=== PATIENT | male | born 1950 | race Caucasian/White ===

== ENCOUNTER → 2018-01-30 11:04 | Outpatient (CLI) | payer MEDICARE, SELFPAY ==
[2018-01-30 11:11] LABS: Bacteria 0 SEEN /hpf (None Seen); Mucous, Urine 0 SEEN /hpf (<or=2+); Red Blood Cells-Urine 0 SEEN /hpf (0-5); Squamous Epithelial Cells - UA 0 SEEN /hpf (0-5)
[2018-01-30 12:18] LABS: Color, Urine Yellow (Yellow); Glucose, Dipstick Normal (Normal); Ketone-Dipstick Negative (Negative); Leukocyte Esterase-Dipstick 25 /ul (Negative); Nitrite-Dipstick Negative (Negative); Occult Blood-Urine Negative /ul (Negative); Protein-Dipstick Negative (Negative); Specific Gravity, Urine 1.015 (1.002-1.030); Urine Bilirubin Dipstick Negative (Negative); Urine Clarity Sl. Cloudy (Clear); Urine Urobilinogen Normal (Normal)
[2018-01-30 12:21] LABS: Absolute Lymphocyte Count 2.78 X10^3/ul (0.83-4.51); Absolute Neutrophil Count 6.6 X10^3/uL (2.0-7.7); Basophil# 0.03 X10^3/uL; Basophil% 0.3 % (0-1); Eosinophil# 0.13 X10^3/uL; Eosinophils% 1.3 % (0-5); Hematocrit 49.6 % (40-54); Hemoglobin 16.8 g/dl (13.0-16.5); Lymphocyte # 2.78 X10^3/ul (4.0); Lymphocyte % 27.1 % (19-41); Mean Corp Hgb Conc 33.9 g/gl (32-36); Mean Corpuscular Hgb 32.7 pg (27.0-32.0); Mean Corpuscular Volume 96.5 fL (80-94); Mean Platelet Vol. 11.3 fl (6.2-12.0); Monocyte# 0.67 X10^3/uL; Monocyte% 6.5 % (0-10); Neutrophil # 6.64 X10^3/uL (2.7-7.7); Neutrophil % 64.7 % (47-70); Platelet Count 180 K/mm3 (150-450); RBC Distribution Width CV 12.9 % (11.6-14.6); RBC Distribution Width SD 45.7 fl (35.1-43.9); Red Blood Count 5.14 M/mm3 (4.6-6.2); White Blood Count 10.3 K/mm3 (4.4-11.0)
[2018-01-30 12:26] LABS: White Blood Cells 0-5 SEEN /hpf (0-5)
[2018-01-30 12:27] LABS: POSITIVE COUNT NO; POSITIVE DIFFERENTIAL NO; POSITIVE MORPHOLOGY NO
[2018-01-30 12:56] LABS: AST(SGOT) 28 U/L (15-37); Alanine Aminotransfer ALT/SGPT 54 U/L (16-61); Albumin, Serum 3.6 g/dL (3.2-5.0); Alkaline Phosphatase 124 U/L (45-117); Anion Gap 6 (5-15); BUN 16 mg/dL (7-18); BUN/Creat Ratio 15.5 RATIO (10-20); Calcium,Total 8.5 mg/dL (8.5-10.1); Chloride 107 mmol/L (98-107); Cholesterol 132 mg/dL (200); Creatinine, Serum 1.03 mg/dL (0.70-1.30); EST Glomerular Filtration Rate 77 mL/min (>60); Est Glom Filt Rate - Afr Amer 93 mL/min (>60); Globulin 3.5 g/dL (2.2-4.2); Glucose 88 mg/dL (74-106); Protein, Total 7.1 g/dL (6.4-8.2); Sodium Level 139 mmol/L (136-145); Thyroid Stim Hormone (TSH) 1.36 uIU/mL (0.358-3.74)
[2018-01-31 11:35] LABS: LDL, Direct 120295 75 mg/dL (0-99)
== END ==
PROVIDERS: Family Provider Family Medicine; PCP Family Medicine; Visit Provider Family Medicine
DX: I25.10 Atherosclerotic heart disease of native coronary artery without angina pectoris (principal); J44.9 Chronic obstructive pulmonary disease, unspecified; N52.9 Male erectile dysfunction, unspecified; E78.00 Pure hypercholesterolemia, unspecified
CPT/HCPCS: 36415; 80053; 81001; 82465; 83721; 84443; 85025

== ENCOUNTER → 2018-07-03 10:13 | Outpatient (CLI) | payer MEDICARE, SELFPAY ==
[2018-07-03 12:16] LABS: ALB/GLOB Ratio 1.1 RATIO (0.9-2.4); AST(SGOT) 16 U/L (15-37); Alanine Aminotransfer ALT/SGPT 29 U/L (16-61); Albumin, Serum 3.7 g/dL (3.2-5.0); Alkaline Phosphatase 126 U/L (45-117); Anion Gap 7 (5-15); BUN 16 mg/dL (7-18); BUN/Creat Ratio 14.7 RATIO (10-20); Calcium,Total 8.8 mg/dL (8.5-10.1); Chloride 107 mmol/L (98-107); Cholesterol 130 mg/dL (200); Creatinine, Serum 1.09 mg/dL (0.70-1.30); EST Glomerular Filtration Rate 72 mL/min (>60); Est Glom Filt Rate - Afr Amer 87 mL/min (>60); Globulin 3.4 g/dL (2.2-4.2); Glucose 87 mg/dL (74-106); High Density Lipoprotein 30 mg/dL; Potassium 4.4 mmol/L (3.5-5.1); Protein, Total 7.1 g/dL (6.4-8.2); Sodium Level 140 mmol/L (136-145); Triglycerides 125 mg/dL; Very Low Density Lipoprotein 25 mg/dL (5-40)
== END ==
PROVIDERS: Family Provider Family Medicine; PCP Family Medicine; Referring Provider Family Medicine; Visit Provider Family Medicine
DX: I25.10 Atherosclerotic heart disease of native coronary artery without angina pectoris (principal)
CPT/HCPCS: 36415; 80053; 80061

== ENCOUNTER → 2018-07-04 09:19 | Outpatient (CLI) | payer MEDICARE, SELFPAY ==
--- NOTE | 2018-07-04 09:24 | RAD_ITS ---
STUDY: X-RAY - PARANASAL SINUSES REASON FOR EXAM: Male, 67 years old. Right-sided pain and pressure. Headache. TECHNIQUE: 3 view(s) of the paranasal sinuses were obtained. COMPARISON: None. FINDINGS: Normal visualized frontal, maxillary, ethmoidal and sphenoid sinuses. Normal visualized facial bones. The soft tissue structures are unremarkable. RAD/Sinuses min 3 Views IMPRESSION: Normal x-rays of the paranasal sinuses. Electronically Signed: Pj Yoder MD at 4:00 EST , Service support ,
[2018-07-04 10:26] LABS: Erythrocyte Sedimentation Rate 9 mm/hr (0-20)
[2018-07-04 10:42] LABS: Absolute Lymphocyte Count 2.88 X10^3/ul (0.83-4.51); Absolute Neutrophil Count 8.8 X10^3/uL (2.0-7.7); Basophil# 0.04 X10^3/uL; Basophil% 0.3 % (0-1); Eosinophil# 0.14 X10^3/uL; Eosinophils% 1.1 % (0-5); Hematocrit 50.3 % (40-54); Hemoglobin 16.8 g/dl (13.0-16.5); Lymphocyte # 2.88 X10^3/ul (4.0); Lymphocyte % 22.2 % (19-41); Mean Corp Hgb Conc 33.4 g/gl (32-36); Mean Corpuscular Hgb 32.9 pg (27.0-32.0); Mean Corpuscular Volume 98.4 fL (80-94); Mean Platelet Vol. 11.2 fl (6.2-12.0); Monocyte# 1.11 X10^3/uL; Monocyte% 8.5 % (0-10); Neutrophil # 8.77 X10^3/uL (2.7-7.7); Neutrophil % 67.5 % (47-70); Platelet Count 205 K/mm3 (150-450); RBC Distribution Width CV 13.3 % (11.6-14.6); RBC Distribution Width SD 47.8 fl (35.1-43.9); Red Blood Count 5.11 M/mm3 (4.6-6.2)
[2018-07-04 10:44] LABS: POSITIVE COUNT NO; POSITIVE DIFFERENTIAL NO; POSITIVE MORPHOLOGY NO
[2018-07-04 11:01] LABS: CRP < 2.90 mg/L (0.0-3.0)
[2018-07-08 09:12] LABS: ANTINUCLEAR ANTIBODIES DIRECT Negative (Negative)
== END ==
PROVIDERS: Family Provider Family Medicine; PCP Family Medicine; Referring Provider Family Medicine; Visit Provider Family Medicine
DX: R51 Headache (principal)
CPT/HCPCS: 36415; 70220; 85025; 85652; 86038; 86140

== ENCOUNTER → 2018-07-28 10:49 | Outpatient (CLI) | payer MEDICARE, SELFPAY ==
[2018-07-28 11:40] LABS: AST(SGOT) 27 U/L (15-37); Alanine Aminotransfer ALT/SGPT 44 U/L (16-61); Albumin, Serum 3.6 g/dL (3.2-5.0); Alkaline Phosphatase 127 U/L (45-117); Bilirubin, Direct 0.15 mg/dL (0.00-0.30); Globulin 3.4 g/dL (2.2-4.2)
== END ==
PROVIDERS: Family Provider Family Medicine; PCP Family Medicine; Referring Provider Family Medicine; Visit Provider Family Medicine
DX: B35.1 Tinea unguium (principal)
CPT/HCPCS: 36415; 80076

== ENCOUNTER → 2018-09-01 08:28 | Outpatient (CLI) | payer MEDICARE, SELFPAY ==
[2018-09-01 10:36] LABS: Hematocrit 48.2 % (40-54); Hemoglobin 15.3 g/dl (13.0-16.5); Mean Corp Hgb Conc 31.7 g/gl (32-36); Mean Corpuscular Hgb 31.5 pg (27.0-32.0); Mean Corpuscular Volume 99.4 fL (80-94); Mean Platelet Vol. 11.5 fl (6.2-12.0); Platelet Count 181 K/mm3 (150-450); RBC Distribution Width CV 12.9 % (11.6-14.6); RBC Distribution Width SD 47.3 fl (35.1-43.9); Red Blood Count 4.85 M/mm3 (4.6-6.2); White Blood Count 8.7 K/mm3 (4.4-11.0)
[2018-09-01 10:37] LABS: Scan Indicated on CBC? Y/N NO
[2018-09-01 10:55] LABS: ALB/GLOB Ratio 1.2 RATIO (0.9-2.4); AST(SGOT) 25 U/L (15-37); Alanine Aminotransfer ALT/SGPT 41 U/L (16-61); Albumin, Serum 3.8 g/dL (3.2-5.0); Alkaline Phosphatase 127 U/L (45-117); Anion Gap 10 (5-15); BUN 22 mg/dL (7-18); BUN/Creat Ratio 18.6 RATIO (10-20); Calcium,Total 8.4 mg/dL (8.5-10.1); Chloride 109 mmol/L (98-107); Cholesterol 124 mg/dL (200); Creatinine, Serum 1.18 mg/dL (0.70-1.30); EST Glomerular Filtration Rate 66 mL/min (>60); Est Glom Filt Rate - Afr Amer 79 mL/min (>60); Globulin 3.2 g/dL (2.2-4.2); Glucose 115 mg/dL (74-106); High Density Lipoprotein 29 mg/dL; Sodium Level 141 mmol/L (136-145); Triglycerides 216 mg/dL; Very Low Density Lipoprotein 43 mg/dL (5-40)
== END ==
PROVIDERS: Family Provider Family Medicine; PCP Family Medicine; Visit Provider Family Medicine
DX: I25.10 Atherosclerotic heart disease of native coronary artery without angina pectoris (principal); J44.9 Chronic obstructive pulmonary disease, unspecified
CPT/HCPCS: 80053; 80061; 85027

== ENCOUNTER → 2018-10-31 08:38 | Outpatient (CLI) | payer MEDICARE, SELFPAY ==
[2018-10-31 11:03] LABS: AST(SGOT) 20 U/L (15-37); Alanine Aminotransfer ALT/SGPT 31 U/L (16-61); Albumin, Serum 3.7 g/dL (3.2-5.0); Alkaline Phosphatase 138 U/L (45-117); Bilirubin, Direct 0.22 mg/dL (0.00-0.30); Protein, Total 6.7 g/dL (6.4-8.2)
== END ==
PROVIDERS: Family Provider Family Medicine; PCP Family Medicine; Referring Provider Family Medicine; Visit Provider Family Medicine
DX: B35.1 Tinea unguium (principal)
CPT/HCPCS: 36415; 80076